=== PATIENT | male | born 1975 | race Caucasian/White ===

== ENCOUNTER 2017-04-26 09:05 | Emergency (ER) | payer BC ==
[2017-04-26] MEDS ORDERED: Sodium Chloride 0.9% 1,000 ML ONE (09:44)
[2017-04-26] MEDS ORDERED: Ondansetron HCl/PF 4 MG/2 ML Vial ONE ×2 (09:44→11:33)
[2017-04-26 09:59] LABS: #Basophils 0.1 thou/uL (0.0-0.2); #Eosinphils 0.1 thou/uL (0.0-0.7); #Lymphocytes 2.2 thou/uL (1.20-3.40); #Monocytes 1.1 thou/uL (0.11-0.59); %Basophils 0.7 % (0.0-1.0); %Eosinophils 0.6 % (0.0-10.0); %Monocytes 7.6 % (0.0-10.0); %Neutrophils 76.1 % (42.0-75.0); Hemoglobin 16.7 g/dL (14.0-18.0); Mean Corpuscular Hemoglobin 30.9 pg (27.0-31.0); Mean Corpuscular Volume 88.2 fl (80.0-94.0); Mean Platelet Volume 11.1 fL (7.4-10.4); Platelet Count 259 thou/uL (130-400); RBC Distribution Width 10.7 % (11.5-14.5); Red Blood Cell (RBC) Count 5.41 mill/uL (4.70-6.10); White Blood Cell (WBC) Count 14.5 thou/uL (4.8-10.8)
[2017-04-26 10:14] LABS: ALT (SGPT) 30 U/L (8-55); AST (SGOT) 19 U/L (5-34); Albumin 4.7 g/dL (3.5-5.0); Alkaline Phosphatase 93 U/L (40-150); Anion Gap 17 mmol/L (10-20); BUN (Urea Nitrogen) 9 mg/dL (8.9-20.6); Bilirubin, Total 2.3 mg/dL (0.2-1.2); Calc. Creatinine Clearance 0 mL/min (70-130); Calcium 9.8 mg/dL (7.8-10.44); Carbon Dioxide 25 mmol/L (22-29); Chloride 101 mmol/L (98-107); Estimated GFR-MDRD Greater than 90; Globulin 3.4 g/dL (2.4-3.5); Glucose 106 mg/dL (70-105); Potassium 3.9 mmol/L (3.5-5.1); Protein, Total 8.1 g/dL (6.0-8.3); Sodium 139 mmol/L (136-145)
[2017-04-26 11:31] LABS: Bilirubin Small (Negative); Blood, Urine Negative (Negative); Clarity Clear (Clear); Glucose, Urine (Dipstick) Negative (Negative); Leukocyte Negative (Negative); Nitrite Negative (Negative); Protein, Urine (Dipstick) 30 mg/dL (Neg-Trace); Specific Gravity, Urine 1.015 (1.005-1.030); pH, Urine 8.5 (5.0-9.0)
[2017-04-26 11:33] LABS: Squamous Epithelial 0-3 HPF (0-3); WBC/HPF 0-3 HPF (0-3)
[2017-04-26] MEDS ORDERED: Piperacillin/Tazobactam 3.375 GM VIAL ONE (12:58)
[2017-04-26] MEDS ORDERED: Sodium Chloride 0.9% 100 ML ONE (12:58)
--- NOTE | 2017-04-26 13:56 | CT ---
CT ABDOMEN AND PELVIS WITH CONTRAST: Date: 04/26/17 HISTORY: Lower abdominal cramping. COMPARISON: None. FINDINGS: Abnormal inflammation is present along the appendix with thickening of the adjacent fascia and small volume fluid. Lung bases are clear. No pericardial effusion. The spleen and liver are unremarkable. There is cholelithiasis. Mild pancreatic atrophy. Large left superior renal cyst is present. No hydronephrosis. No dilated air-filled loops of large or small bowel. Mild diverticular disease sigmoid colon. Urinary bladder is mildly distended. There is some erosive change of the right iliac wing, which may be due to sequelae of prior graft harvesting. There are bilateral pars interarticularis defects at L5 with anterolisthesis. IMPRESSION: 1. Acute appendicitis. The appendix is retrocecal and extends caudad in the same plane as the cecal apex. Moderate inflammatory stranding, as well as small volume fluid. No appendicolith is appreciated . 2. Cholelithiasis without cholecystitis. 3. Bilateral pars interarticular defects at L5 with Grade I anterolisthesis. POS: [facility]
== END 2017-04-26 14:13 | disposition short-term general hospital (02) ==
LOC: NAV ERS 09:05
DX: K35.80 Unspecified acute appendicitis (principal); E03.9 Hypothyroidism, unspecified; I10 Essential (primary) hypertension; Z79.899 Other long term (current) drug therapy
CPT/HCPCS: 74177; 80053; 81003; 81015; 83605; 85025; 96361; 96365; 96375; 96376; J1170; J2270; J2405; J2543; J7050